=== PATIENT | female | born 2000 | race Two or more races ===

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

== ENCOUNTER 2021-03-02 16:56 | Emergency (ER) | payer MEDICAID ==
[~2021-03-02] VITALS: Ht 160 cm; Wt 110.2 kg
[~2021-03-02 16:56] MED LIST: ALBU0.0912 INH; PRED20TA5 PO
[2021-03-02 17:06] VITALS: BP 146/81
[2021-03-02] MEDS ORDERED: PRED20TA5 PO (18:02)
[2021-03-02] MEDS ORDERED: OFLO10SO16 LEFT EAR (18:02)
[2021-03-02] MEDS ORDERED: HYD1C TP (18:02)
[2021-03-02 18:05] VITALS: BP 146/81
--- NOTE | 2021-03-02 18:06 | NUR ---
Patient discharged with v/s stable. Written and verbal after care instructions given and explained. Patient alert, oriented and verbalized understanding of instructions. Ambulatory with steady gait. All questions addressed prior to discharge. ID band removed. Patient advised to follow up with PMD. Rx of prednisone, olfoxacin, hydrocortisone (sent) given. Patient educated on indication of medication including possible reaction and side effects. Opportunity to ask questions provided and answered.
== END 2021-03-02 18:06 | disposition home or self-care (01) ==
LOC: MED 16:56
DX: H60.92 Unspecified otitis externa, left ear (principal); L30.9 Dermatitis, unspecified; Z79.899 Other long term (current) drug therapy
CPT/HCPCS: 99283

== ENCOUNTER 2021-06-29 00:57 | Emergency (ER) | payer MEDICAID ==
[~2021-06-29] VITALS: Ht 160 cm; Wt 109.8 kg
[~2021-06-29 00:57] MED LIST changes: +HYD1C TP; +OFLO10SO16 LEFT EAR
[2021-06-29 01:06] VITALS: BP 130/68
--- NOTE | 2021-06-29 01:10 | NUR ---
Patient ambulated to bed 3.
--- NOTE | 2021-06-29 02:00 | NUR ---
ER AT BEDSIDE
--- NOTE | 2021-06-29 02:08 | NUR ---
George nguyen in [facility] - 06/29/21 at [email or web address] Garcia at bedside to exam patient.
[2021-06-29 02:20] VITALS: BP 130/68
--- NOTE | 2021-06-29 02:20 | NUR ---
Patient discharged with v/s stable. Written and verbal after care instructions given and explained. Patient verbalized understanding. Ambulatory with steady gait. All questions addressed prior to discharge. Advised to follow up with PMD.
--- NOTE | 2021-06-29 02:21 | NUR ---
The patient's care was reviewed and supervised by Jacey Cantu RN.
== END 2021-06-29 02:20 | disposition home or self-care (01) ==
LOC: MED 00:57
DX: R10.32 Left lower quadrant pain (principal); R30.0 Dysuria; R35.0 Frequency of micturition; Z79.899 Other long term (current) drug therapy
CPT/HCPCS: 74018; 81002; 81025; 99283

== ENCOUNTER 2023-01-17 13:19 | Emergency (ER) | payer MEDICAID, OTHER ==
[~2023-01-17] VITALS: Ht 160 cm; Wt 99.3 kg
[2023-01-17 13:38] VITALS: BP 102/70; PULSE 83; RESP 16; TEMP 98.9; O2SAT 99
[2023-01-17] MEDS ORDERED: PROCHLORPERAZINE 5 MG TAB PO ONE (15:10)
[2023-01-17] MEDS ORDERED: KETOROLAC 30 MG/ML VIAL IM ONE (15:10)
[2023-01-17] MEDS ORDERED: IBUP-2213 PO (15:39)
[2023-01-17] MEDS ORDERED: ONDA4ODT2 PO (15:39)
[2023-01-17] MEDS ORDERED: KETOROLAC 30 MG/ML VIAL ONE (16:12)
[2023-01-17] MEDS ORDERED: PROCHLORPERAZINE 5 MG TAB ONE (16:12)
[2023-01-17 16:46] LABS: APPEARANCE,URINE HAZY (CLEAR); BILIRUBIN,URINE NEGATIVE (NEGATIVE); BLOOD, URINE NEGATIVE (NEGATIVE); COLOR,URINE YELLOW (YELLOW); LEUKOCYTE ESTERASE ,URINE 2+ (NEGATIVE); NITRITE, URINE NEGATIVE (NEGATIVE); PH,URINE 6.5 (5.0-9.0); PROTEIN,URINE TRACE (NEGATIVE); UGLUCOSE NEGATIVE (NEGATIVE); UROBILINOGEN,URINE 0.2 EU/dL (0.2 - 1)
[2023-01-17 16:48] VITALS: BP 102/70; PULSE 83; RESP 16; TEMP 98.9; O2SAT 99
[2023-01-17 16:49] LABS: BACTERIA,URINE 10-30 (MOD) /HPF (None Seen); RBC,URINE 0-5 /HPF (0-5); SQUAMOUS EPITHELIAL CELL,UR 50-80 /LPF (0-3 (FEW))
[2023-01-17] MEDS ORDERED: CEPH-588 PO (17:03)
== END 2023-01-17 16:49 | disposition home or self-care (01) ==
LOC: MED 13:19
DX: S06.0X0A Concussion without loss of consciousness, initial encounter (principal); N39.0 Urinary tract infection, site not specified; Z79.899 Other long term (current) drug therapy; Z79.2 Long term (current) use of antibiotics; Z79.1 Long term (current) use of non-steroidal anti-inflammatories (NSAID); V89.2XXA Person injured in unspecified motor-vehicle accident, traffic, initial encounter; Y93.89 Activity, other specified; Y92.410 Unspecified street and highway as the place of occurrence of the external cause; Y99.8 Other external cause status
CPT/HCPCS: 81001; 81025; 87086; 96372; 99283; J1885; Q0164

== ENCOUNTER 2023-05-13 10:14 | Emergency (ER) | payer OTHER ==
[~2023-05-13] VITALS: Ht 160 cm; Wt 107.0 kg
[~2023-05-13 10:14] MED LIST changes: +CEPH-588 PO; +IBUP-2213 PO; +ONDA4ODT2 PO
[2023-05-13 10:40] VITALS: BP 128/72; PULSE 73; RESP 16; TEMP 98.6; O2SAT 97
[2023-05-13 10:52] VITALS: O2SAT 97
[2023-05-13 11:15] LABS: APPEARANCE,URINE CLEAR (CLEAR); BILIRUBIN,URINE NEGATIVE (NEGATIVE); BLOOD, URINE NEGATIVE (NEGATIVE); COLOR,URINE YELLOW (YELLOW); LEUKOCYTE ESTERASE ,URINE TRACE (NEGATIVE); NITRITE, URINE NEGATIVE (NEGATIVE); PROTEIN,URINE NEGATIVE (NEGATIVE); UGLUCOSE NEGATIVE (NEGATIVE); UROBILINOGEN,URINE 0.2 EU/dL (0.2 - 1)
[2023-05-13 11:18] LABS: BACTERIA,URINE 1+ /HPF (None Seen); MUCUS,URINE None Seen /LPF (None Seen); RBC,URINE 0 /HPF (0-5); SQUAMOUS EPITHELIAL CELL,UR 0-3 (FEW) /LPF (0-3 (FEW)); WBC,URINE 0-5 /HPF (0-5)
[2023-05-13 12:55] VITALS: O2SAT 97
[2023-05-13] MEDS ORDERED: NAPR-1704 PO (13:53)
== END 2023-05-13 14:05 | disposition home or self-care (01) ==
LOC: MED 10:14
DX: N83.02 Follicular cyst of left ovary (principal); N83.01 Follicular cyst of right ovary; J45.909 Unspecified asthma, uncomplicated; Z79.899 Other long term (current) drug therapy
CPT/HCPCS: 76830; 81001; 81025; 93976; 99284; Q0092

== ENCOUNTER 2023-06-08 22:59 | Emergency (ER) | payer OTHER ==
[~2023-06-08] VITALS: Ht 160 cm; Wt 104.3 kg
[~2023-06-08 22:59] MED LIST changes: +NAPR-1704 PO
[2023-06-08 23:15] VITALS: BP 124/71; PULSE 107; RESP 20; TEMP 99.9; O2SAT 97
[2023-06-09] MEDS: predniSONE 20 MG TAB PO ONE (00:15)
[2023-06-09] MEDS: ALBUTEROL SULFATE/IPRATROPIU 3 ML SOL IH ONE (00:24)
[2023-06-09 00:25] VITALS: PULSE 103; RESP 16; O2SAT 97; O2SAT 98
[2023-06-09 02:00] LABS: FLU A ANTIGEN negative (NEGATIVE); FLU B ANTIGEN NEGATIVE (NEGATIVE)
[2023-06-09] MEDS ORDERED: ALBU0.0912 IH (02:07)
[2023-06-09] MEDS ORDERED: PRED20TA5 PO (02:07)
[2023-06-09] MEDS ORDERED: AZIT250T4 PO (02:07)
[2023-06-09 02:23] VITALS: BP 124/71; PULSE 103; RESP 16; TEMP 99.9; O2SAT 98
== END 2023-06-09 02:23 | disposition home or self-care (01) ==
LOC: MED 22:59
DX: J45.901 Unspecified asthma with (acute) exacerbation (principal); Z20.822 Contact with and (suspected) exposure to COVID-19; Z79.899 Other long term (current) drug therapy
CPT/HCPCS: 71045; 87426; 87804; 94640; 99284; J7512

== ENCOUNTER 2023-06-11 22:52 | Emergency (ER) | payer OTHER ==
[~2023-06-11] VITALS: Ht 160 cm; Wt 104.3 kg
[~2023-06-11 22:52] MED LIST changes: +ALBU0.0912 IH; +AZIT250T4 PO
[2023-06-11 23:10] VITALS: BP 112/48; PULSE 93; RESP 18; TEMP 98; O2SAT 98
[2023-06-11 23:59] VITALS: BP 116/58; PULSE 93; RESP 18; TEMP 98; O2SAT 98
[2023-06-12] MEDS ORDERED: AMOX-1230 PO (00:03)
[2023-06-12] MEDS ORDERED: BENZ200C4 PO (00:03)
== END 2023-06-12 00:05 | disposition home or self-care (01) ==
LOC: MED 22:52
DX: J20.9 Acute bronchitis, unspecified (principal); J45.909 Unspecified asthma, uncomplicated; Z79.899 Other long term (current) drug therapy
CPT/HCPCS: 99283